=== PATIENT | male | born 1995 | race Two or more races ===

== ENCOUNTER 2016-07-17 11:55 | Emergency (ER) | payer OTHER ==
[2016-07-17 12:31] VITALS: BP 146/90; PULSE 75; TEMP 98.2; BMI 29.9
--- NOTE | 2016-07-17 14:26 | PDOC ---
History of Present Illness - General Chief Complaint: Ear Problem Stated Complaint: EAR PROBLEM Time Seen by Provider: 07/17/16 13:35 History Source: Patient Exam Limitations: No Limitations - History of Present Illness Initial Comments: 07/17/16 14:20 21 yr male with right ear pain since lst night worse today. Pt states he has had a cough the past week with URI symptoms. Denies trauma to ear. no fever. 07/17/16 14:22 Associated Symptoms: reports: cough Past History - Past Medical History Allergies/Adverse Reactions: Allergies Allergy/AdvReac Type Severity Reaction Status Date / Time No Known Allergies Allergy Verified 07/17/16 12:29 Home Medications: Ambulatory Orders Amoxicillin - [Amoxicillin 500mg Capsule -] 500 mg PO TID #21 capsule 07/17/16 Other medical history: NONE - Surgical History Other Surgical History: 07/17/16 14:22 none - Family Disease History Comment:: 07/17/16 14:22 none - Immunization History Immunization Up to Date: Yes - Psycho/Social/Smoking Cessation Hx Anxiety: No Suicidal Ideation: No Smoking History: Never smoked Have you smoked in the past 12 months: No Number of Cigarettes Smoked Daily: 0 Cigars Per Day: 0 Information on smoking cessation initiated: No Hx Alcohol Use: No Drug/Substance Use Hx: No Substance Use Type: None Review of Systems - Review of Systems Able to Perform ROS?: Yes Is the patient limited [place] proficient: No Constitutional: No: Symptoms Reported HEENTM: Yes: Symptoms Reported Respiratory: No: Symptoms reported Cardiac (ROS): No: Symptoms Reported ABD/GI: No: Symptoms Reported : No: Symptoms Reported Musculoskeletal: No: Symptoms Reported Integumentary: No: Symptoms Reported *Physical Exam - Vital Signs Last Vital Signs Temp Pulse Resp BP Pulse Ox 98.2 F 75 18 146/90 100 07/17/16 12:29 07/17/16 12:29 07/17/16 12:29 07/17/16 12:29 07/17/16 12:29 - Physical Exam General Appearance: Yes: Nourished, Appropriately Dressed HEENT: positive: EOMI, WILLIAM, Normal ENT Inspection, Pharynx Normal, TM Dull ( right ear ), TM Erythema Neck: positive: Supple. negative: Tender Respiratory/Chest: positive: Lungs Clear, Normal Breath Sounds Cardiovascular: positive: Regular Rhythm, Regular Rate Gastrointestinal/Abdominal: positive: Normal Bowel Sounds, Soft Musculoskeletal: positive: Normal Inspection Extremity: positive: Normal Inspection, Normal Range of Motion Integumentary: positive: Normal Color, Dry, Warm Neurologic: positive: Fully Oriented, Alert, Normal Mood/Affect, Normal Response , Motor Strength /5 Medical Decision Making - Medical Decision Making 07/17/16 14:26 cc: right ear pain , cough afebrile non toxic appearing male no distress. *DC/Admit/Observation/Transfer Diagnosis at time of Disposition: Acute otitis media Qualifiers: Otitis media type: suppurative Laterality: right Recurrence: not specified Spontaneous tympanic membrane rupture: without spontaneous rupture Qualified Code(s): H66.001 - Acute suppurative otitis media without spontaneous rupture of ear drum, right ear - Discharge Dispostion Disposition: HOME Condition at time of disposition: Good - Prescriptions Prescriptions: Amoxicillin - [Amoxicillin 500mg Capsule -] 500 mg PO TID #21 capsule - Patient Instructions Additional Instructions: follow with your doctor next week if no improvement take the antibiotics as directed for 7 days also take ibuprofen or motrin for pain as needed no water no Qtips in the ear
== END 2016-07-17 14:33 | disposition home or self-care (01) ==
LOC: JERFT 11:55
DX: H66.001 Acute suppurative otitis media without spontaneous rupture of ear drum, right ear (principal)
CPT/HCPCS: 99281-25

== ENCOUNTER 2016-09-26 11:36 | Emergency (ER) | payer SELFPAY ==
[2016-09-26 11:42] VITALS: BP 133/62; PULSE 72; TEMP 97.9; BMI 29.1
--- NOTE | 2016-09-26 12:54 | PDOC ---
History of Present Illness - General Chief Complaint: Injury Stated Complaint: LT ANKLE PAIN, SWOLLEN Time Seen by Provider: 09/26/16 12:04 - History of Present Illness Initial Comments: 09/26/16 12:53 CHIEF COMPLAINT: HISTORY OF PRESENT ILLNESS: 21 yo M with no PMH presents to fast track with left foot pain s/p injury. Patient states he "twisted his ankle" two days ago but came in today because it still hurts and is still swollen. Patient is walking and weight bearing on the foot but with pain. No recent travel or sick contacts. PAST MEDICAL HISTORY: Denies past medical history FAMILY HISTORY: Denies SOCIAL HISTORY:Denies tobacco, alcohol, illicit drug use. SURGICAL HISTORY: Denies ALLERGIES: No known drug allergies REVIEW OF SYSTEMS General/Constitutional: Denies fever or chills. Denies weakness, weight change. HEENT: Denies change in vision. Denies ear pain or discharge. Denies sore throat. Cardiovascular: Denies chest pain or shortness of breath. Respiratory: Denies cough, wheezing, or hemoptysis. Gastrointestinal: Denies nausea, vomiting, diarrhea or constipation. Denies rectal bleeding. Genitourinary: Denies dysuria, frequency, or change in urination. Musculoskeletal: Pain to left ankle with swelling. Skin and breasts: Denies rash or easy bruising. PHYSICAL EXAM General Appearance: Well-appearing, appropriately dressed. No apparent distress , no intoxication. HEENT: EOMI, PERRLA, normal ENT inspection, normal voice, TMs normal, pharynx normal. No conjunctival pallor. No photophobia, scleral icterus. Respiratory/Chest: Lungs CTAB. Cardiovascular: RRR. S1, S2. Musculoskeletal/Extremities: Swelling to lateral malleolus of left foot. Normal inspection. FROM of all extremities, normal capillary refill. Pelvis Stable. No CVA tenderness. No tenderness to extremities, pedal edema, swelling , erythema or deformity. Integumentary: Appropriate color, dry, warm. No cyanosis, erythema, jaundice or rash Neurologic: call center supervisor II-XII intact. Fully oriented, alert. Appropriate mood/affect. Motor strength 5/5. No appreciable EOM palsy, facial droop or sensory deficit. Past History - Past Medical History Allergies/Adverse Reactions: Allergies Allergy/AdvReac Type Severity Reaction Status Date / Time No Known Allergies Allergy Verified 09/26/16 11:42 Home Medications: Ambulatory Orders NK [No Known Home Medication] 09/26/16 Other medical history: denies - Immunization History Immunization Up to Date: Yes - Psycho/Social/Smoking Cessation Hx Anxiety: No Suicidal Ideation: No Smoking History: Never smoked Have you smoked in the past 12 months: No Number of Cigarettes Smoked Daily: 0 Cigars Per Day: 0 Information on smoking cessation initiated: No Hx Alcohol Use: No Drug/Substance Use Hx: No Substance Use Type: None *Physical Exam - Vital Signs Last Vital Signs Temp Pulse Resp BP Pulse Ox 97.9 F 72 18 133/62 98 09/26/16 11:40 09/26/16 11:40 09/26/16 11:40 09/26/16 11:40 09/26/16 11:40 Medical Decision Making - Medical Decision Making 09/26/16 13:03 21 yo M with no PMH presents to fast track with left ankle pain. -L ankle x-ray 09/26/16 15:49 X-ray negative for fracture. Patient reports that he has Motrin at home and does not need mroe pain medication. Advised pt to follow up with ortho within the week. Advised patient of signs and symptoms for return to ED. Patient verbalized understanding and agrees to plan. 09/26/16 15:49 *DC/Admit/Observation/Transfer Diagnosis at time of Disposition: Left ankle sprain Qualifiers: Encounter type: initial encounter Involved ligament of ankle: unspecified ligament Qualified Code(s): S93.402A - Sprain of unspecified ligament of left ankle, initial encounter - Discharge Dispostion Admit: No - Referrals Referrals: Dariana Perkins [Primary Care Provider] - Mike Mcnally MD [Staff Physician] - - Patient Instructions Printed Discharge Instructions: How To Perform RICE (Rest, Ice, Compress, Elevate), DI for Ankle Sprain Additional Instructions: Please take Motrin as needed for pain and follow up with orthopedics if pain persists. If you experience any numbness or tingling, or loss of sensation to your foot, or any increased swelling, or fever, nausea, vomiting, diarrhea or any new or worsening symptoms, please return to the ER. - Post Discharge Activity Work/School Note: Back to Work
== END 2016-09-26 13:37 | disposition home or self-care (01) ==
LOC: JERFT 11:36
DX: S93.402A Sprain of unspecified ligament of left ankle, initial encounter (principal); X50.1XXA Overexertion from prolonged static or awkward postures, initial encounter; Y93.89 Activity, other specified; Y92.89 Other specified places as the place of occurrence of the external cause
CPT/HCPCS: 73610-TC-LT; 73630-TC-LT; 99281-25